=== PATIENT | male | born 1960 | race Caucasian/White ===

== ENCOUNTER → 2016-11-24 | Day surgery (SDC) | payer OTHER ==
[~2016-11-24] VITALS: Ht 180.3 cm; Wt 104.3 kg
[~2016-11-24] MED LIST: LIALDA1.2 G1 PO; MELOXICAM15 M1 PO
--- NOTE | 2016-11-24 11:16 | Operative Report ---
Operative/Inv Procedure Report Surgery Date: 11/24/16 Name of Procedure: Right knee arthroscopy, partial medial meniscectomy, chondroplasty medial femoral condyle Pre-Operative Diagnosis: Right knee medial meniscus tear Post-Operative Diagnosis: Right knee medial meniscus tear Estimated Blood Loss: jany Surgeon/Supervisor [employer]: ALEJA PINK MD Anesthesia: laryngeal mask airway, block Complications: None Condition: Stable to PACU Operative Indication: This is a 55-year-old male who has been having right medial knee pain. MRI showed a medial meniscus tear. Risks and benefits of the procedure were discussed with the patient at length. Risks include but are not limited to nerve damage, muscle damage, infection, blood loss, blood clots, pulmonary embolus, and even . The patient agreed to the above risks and elected to proceed with surgery. Operative/Procedure Note Note: The patient was placed supine on the operating room table. A tourniquet was applied. The lower extremity prepped and draped in normal sterile fashion. A timeout was performed before the incision. The site marking was visualized before incision. After the leg was prepped and draped, an Esmarch was used to exsanguinate the extremity. The tourniquet was inflated. A standard inferolateral portal was established with an 11 blade. The camera was inserted. A medial portal was established with a spinal needle and an 11 blade. The diagnostic arthroscopy was then performed which showed the above findings. A shaver as well as a straight biter were used to debride the posterior horn of the medial meniscus. The camera was then switched to the medial portal and the straight biter was brought into the lateral portal. Debridement was performed of the body of the medial meniscus. The shaver was then used to complete the debridement to attain a smooth stable rim of cartilage. The shaver was then used to perform a chondroplasty over the medial femoral condyle. The knee was copiously irrigated. The portal sites were closed with 3-0 nylon suture in a simple interrupted fashion. A dry sterile dressing was applied and the patient was transferred to PACU in stable condition. Findings: Complex tear of the posterior horn and body of the medial meniscus. Grade 3 chondral flap of the medial femoral condyle. Medial tibial plateau articular cartilage with grade 1 chondral changes. ACL intact. PCL intact. Lateral compartment articular cartilage and lateral meniscus intact. Patellofemoral joint with grade 2 chondral changes of the undersurface of the patella. Trochlea articular cartilage intact.
== END ==
LOC: STS 02:06
DX: S83.231A Complex tear of medial meniscus, current injury, right knee, initial encounter (principal); X58.XXXA Exposure to other specified factors, initial encounter; Z87.891 Personal history of nicotine dependence
CPT/HCPCS: J0690; J2250; J2405